=== PATIENT | male | born 1970 | race Hispanic/Latino ===

== ENCOUNTER → 2018-05-02 | Outpatient (CLI) | payer OTHER ==
[~2018-05-02] MED LIST: OMNICEF300 MG PO
--- NOTE | 2018-05-02 13:14 | Diagnostic Imaging Report ---
Exam: Right knee 2 views History: Pain Comparison: None. Findings: No fracture or malalignment. 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 No abnormal soft tissue calcification or soft tissue defect. 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 Signed by: Dr. Froylan Moscoso M.D. on 05/02/2018 1:10 PM
== END ==
LOC: RAD 12:19
PROVIDERS: ATTEND Family Medicine
DX: M25.561 Pain in right knee (principal)